=== PATIENT | male | born 1985 | race Caucasian/White ===

== ENCOUNTER → 2021-10-15 | Outpatient (CLI) | payer OTHER, SELFPAY | END | disposition home or self-care (01) | LOC: LABSPEC 11:41 | PROVIDERS: PCP Family Medicine; Referring Provider Physician Assistant; Visit Provider Physician Assistant | DX: U07.1 COVID-19 (principal) | CPT/HCPCS: 87635; U0005; U0003 ==

== ENCOUNTER 2023-11-01 07:33 | Emergency (ER) | payer OTHER, SELFPAY ==
[2023-11-01 07:34] VITALS: BP 191/108; PULSE 84; RESP 16; TEMP 35; O2SAT 97; BMI 40.6
--- NOTE | 2023-11-01 07:43 | EDS_ITS ---
HPI History of Present Illness Chief Complaint: Upper Extremity Injury Detail of Chief Complaint: Laceration left index finger Informant: patient Narrative Narrative: Patient presents to the emergency department with a laceration to his left index finger. Patient states that he was throwing a piece of wood into the fireplace when he hit the door of the fireplace with his left index finger. Patient states he was wearing thin leather gloves and is left filled with blood pretty quickly. He is unsure of his last tetanus shot. He is right-hand dominant. [facility] Medical History (Updated 11/01/23 @ 08:[address] Kwame Jackson, DO) Encounter to establish care Obesity (BMI 30-39.9) Pilonidal cyst Preventative health care Seasonal allergies Home Medications multivitamin 1 tab PO DAILY 10/22/22 [History Last Taken Unknown] cephalexin 500 mg capsule 500 mg PO Q6 #40 CAPSULES 11/01/23 [Rx Last Taken Unknown] omeprazole magnesium 20 mg tablet,delayed release (Prilosec OTC) 20 mg PO DAILY 11/01/23 [History Last Taken Unknown] Allergy/AdvReac Type Severity Reaction Status Date / Time No Known Allergies Allergy Unverified 11/19/22 17:58 Family History Other Anxiety Asthma Cancer Diabetes Hypertension Surgical History History of hernia repair History of tonsillectomy Social History Smoking Status: Never smoker alcohol intake: current alcohol intake frequency: a few times a month substance use type: does not use what type of physical activity do you participate in: none ROS ROS ED Review of Systems ROS Unobtainable: other Constitutional Constitutional ED: Reports lethargy; Denies chills, fever(s), sweats or weight loss Eyes Eyes: Denies blurry vision, change in vision or diplopia ENT ENT ED: Denies rhinorrhea or sore throat Cardiovascular Cardiovascular: Denies chest pain, orthopnea or racing heartbeat Respiratory/Chest Respiratory/Chest: Denies cough, dyspnea, dyspnea on exertion, orthopnea or sputum Gastrointestinal Gastrointestinal: Denies abdominal pain, diarrhea, nausea or vomiting Genitourinary Genitourinary ED: Denies dysuria, hematuria or urinary frequency Musculoskeletal Musculoskeletal: Reports other Details: Left index finger injury/laceration ; Denies arthralgias, back pain, myalgias or neck pain Integumentary Denies abscess, Abrasions or rash Neurologic Neurologic: Denies headache(s) or weakness Psychiatric Psychiatric: Denies anxiety, depression or suicidal thoughts Endocrine Endocrinology: Denies polydipsia, polyphagia or polyuria Hematologic/Lymphatic Hematologic/Lymphatic: Denies easy bleeding, easy bruising or lymphadenopathy Allergic/Immunologic Allergic/Immunologic ED: Denies mouth swelling, tongue swelling or urticaria EXAM Physical Exam Const Vital Signs: 11/01/23 07:34 Temperature 95.0 F L Temperature Source Temporal Pulse Rate 84 Respiratory Rate 16 Blood Pressure 191/108 H Blood Pressure Mean 135 Pulse Ox 97 Oxygen Delivery Method Room Air Positive well nourished and well developed General Appearance ED: well developed and NAD HEENT Reports TM's clear and moist mucous membranes normocephalic and atraumatic; Negative for trauma or tenderness Tympanic Membrane ED: Yes TM's clear Eyes PERRL and EOMs intact bilaterally General Eye ED: Negative for pale conjunctiva or scleral icterus Neck no lymphadenopathy, supple and no JVD General: Negative for tenderness Chest Wall inspection of chest normal and palpation of chest normal Chest: Negative for tenderness Resp normal respiratory effort and clear to auscultation bilaterally Effort and Inspection: Negative for respiratory distress or pain with movement Auscultation: Negative for rhonchi, wheezes or diminished lung sounds Cardio regular rate, regular rhythm, S1 normal heart sound, S2 normal heart sound and no murmurs Peripheral Pulses: pulses 2+ throughout GI normal to inspection, nondistended, normoactive bowel sounds, soft to palpation, non-tender, non-distended and no masses Back/Spine no CVA tenderness and no thoracic nor lumbar tenderness Extremity Extremity Narrative: Left index finger-patient does have ecchymosis and bruising to the volar aspect of the proximal phalanx. 1 cm laceration over the dorsum of the proximal phalanx with no active bleeding currently. He has good range of motion flexion extension of the digit against resistance. Neurovascular intact distally. General Extremety ED: Negative for edema General Extremity: Negative for edema Neuro oriented x3, CN's II-XII intact bilaterally, no sensory deficits noted and gait normal Sensorium / Orientation: awake, alert, oriented to person, oriented to place and oriented to time Motor Exam: strength 5/5 throughout and strength abnormal Psych mental status grossly normal Skin no rashes or lesions noted and no wounds MDM MDM MDM Narrative Medical decision making narrative: Patient presents with crush injury to the left index finger with laceration. X- rays of the left index finger obtained showed no fractures. Laceration repair please see procedure note. On exam of the wound I am able to visualize the extensor tendon but do not see any lacerations in it. He has normal range of motion through flexion extension and normal strength. Patient tolerated procedure well. He is advised have sutures removed in 10 days. I will cover him with Keflex. Advised return if increasing pain, redness, swelling, or condition worsening way. Radiography Diagnostic Testing: Three-view x-rays of the left index finger obtained interpreted by myself as no evidence of fracture or dislocation. Radiology in agreement. Procedures Lacerations Left index finger laceration: Length: 0.39 in Depth: Sub Q Shape: Linear Prep: Sterile Conditions and Shure-Clens Laceration repair: Irrigated, Lidocaine and Local Irrigated (ml): 50 Number of Sutures/Concepcion: 3 Suture Information: Ethilon, Simple and 5-0 Discharge Plan Triage Chief Complaint: Upper Extremity Injury ED Provider: Kwame Jackson Dx/Rx/DC Orders Clinical Impression: Contusion of finger, Laceration of left index finger Instructions: ED Laceration, Hand: All Closures, ED Finger or Toe Contusion Prescriptions: New cephalexin [cephalexin] 500 mg capsule 500 mg PO Q6 Qty: 40 0RF No Action multivitamin Tablet 1 tab PO DAILY omeprazole magnesium [Prilosec OTC] 20 mg tablet,delayed release (DR/EC) 20 mg PO DAILY Primary Care Provider: Arabella Odom Referrals: Arabella Oodm MD [Primary Care Provider] - 10 Day for suture removal Disposition Disposition: Home, Self Care Discharge Date/Time: 11/01/23 09:11
--- NOTE | 2023-11-01 07:55 | RAD_ITS ---
EXAM: XR LEFT FINGERS, 2 OR MORE VIEWS CLINICAL INDICATION: injury TECHNIQUE: Frontal, lateral and oblique views of the fingers of the left hand. COMPARISON: No relevant prior studies available. FINDINGS: BONES/JOINTS: No acute abnormality. SOFT TISSUES: Mild soft tissue swelling of the left second finger. No radiopaque foreign body. RAD/Finger(s) Min 2 Views IMPRESSION: No acute bone or joint abnormality. Electronically Signed: Andrea Lees MD at 8:34 EST ,
--- OUTSIDE RECORDS SUMMARY | 2023-11-01 08:07 | XMS RPT_ITS | CCD ---
Author Name Unknown Address [address] [place] [address] Organization [facility] Results Test Name Value Interpretation Reference Range Facil ity Summary Purpose Family History No Family History Records FoundNo Family History Records Found Advance Directives No Advanced Directives Records FoundNo Advanced Directives Records Found Additional Source Comments (unrecognized sect ion and content) No Status Records FoundNo Status Records Found INFORMATION SOURCE (unrecogn ized section and content) DATE CREATED AUTHOR AUTHOR'S PEG ATION 11/30/2020 [facility] FOR RECORDS PERTAINING TO PATIENTS WHO ARE OR HAVE BEEN ENROLLED IN A CHEMICAL DEPENDENCY/SUBSTANCEABUSE PROGRAM, SOME INFORMATION MAY BE OMITTED. This clinical summary was aggregated from multiple sources. Caution should be exercised in using it in the provision of clinical care. This summary normalizes information from multiple sources, and as a consequence, information in this document may materially change the coding, format and clinical context of patient data. In addition, data may be omitted in some cases. CLINICAL DECISIONS SHOULD BE BASED ON THE PRIMARY CLINICAL RECORDS. [facility] [employer] [facility]. provides no warranty or guarantee of the accuracy or completeness of information in this document.
[2023-11-01] MEDS: Lidocaine 1% (20 ml mdv) 20 ML Vial 4 ML INFILT (08:50)
[2023-11-01] MEDS: Diphth,Pertuss(Acell),Tet Vac 0.5 ML Vial IM (08:50)
[2023-11-01] MEDS: Cephalexin 250 MG Capsule 500 MG PO (08:58)
== END 2023-11-01 09:11 | disposition home or self-care (01) ==
PROVIDERS: Emergency Provider Emergency Medicine; PCP Internal Medicine; Visit Provider Emergency Medicine
DX: S61.211A Laceration without foreign body of left index finger without damage to nail, initial encounter (principal); W22.09XA Striking against other stationary object, initial encounter; Z23 Encounter for immunization; Z79.899 Other long term (current) drug therapy
CPT/HCPCS: 12001; 73140; 90471; 90715; 99283

== ENCOUNTER → 2023-12-08 | Outpatient (CLI) | payer OTHER, SELFPAY ==
[2023-12-08 11:57] LABS: Absolute Lymphocyte Count 2.04 X10^3/uL (0.83-4.51); Absolute Neutrophil Count 5.5 X10^3/uL (2.0-7.7); Basophil# 0.09 X10^3/uL; Eosinophil# 0.09 X10^3/uL; Hematocrit 46.9 % (40-54); Hemoglobin 16.3 g/dL (13.0-16.5); Lymphocyte # 2.04 X10^3/ul (0.83-4.51); Lymphocyte % 23.2 % (19-41); Mean Corp Hgb Conc 34.8 g/dL (32-36); Mean Corpuscular Hgb 31.7 pg (27.0-32.0); Mean Corpuscular Volume 91.2 fL (80-94); Mean Platelet Vol. 10.3 fl (6.2-12.0); Monocyte% 11.4 % (0-10); NRBC Flagged by Analyzer 0 % (0-5); Neutrophil # 5.52 X10^3/uL (2.7-7.7); Neutrophil % 62.8 % (47-70); Platelet Count 292 K/mm3 (150-450); RBC Distribution Width CV 11.5 % (11.6-14.6); RBC Distribution Width SD 38.5 fl (35.1-43.9); Red Blood Count 5.14 M/mm3 (4.6-6.2); White Blood Count 8.8 K/mm3 (4.4-11.0)
[2023-12-08 12:30] LABS: Hemoglobin A1c 5.5 % (3.8-5.6)
[2023-12-08 12:43] LABS: ALB/GLOB Ratio 1.1 RATIO (0.9-2.4); AST(SGOT) 24 U/L (15-37); Alanine Aminotransfer ALT/SGPT 51 U/L (16-61); Albumin, Serum 4.3 g/dL (3.2-5.0); Alkaline Phosphatase 54 U/L (45-117); Anion Gap 7 (5-15); BUN 12 mg/dL (7-18); Calcium,Total 9.5 mg/dL (8.5-10.1); Chloride 102 mmol/L (98-107); Cholesterol 240 mg/dL (200); Creatinine, Serum 0.93 mg/dL (0.70-1.30); EST Glomerular Filtration Rate 96 mL/min (>60); Est Glom Filt Rate - Afr Amer 116 mL/min (>60); Globulin 3.8 g/dL (2.2-4.2); Glucose 99 mg/dL (74-106); High Density Lipoprotein 59 mg/dL; Potassium 4.3 mmol/L (3.5-5.1); Protein, Total 8.1 g/dL (6.4-8.2); Sodium Level 133 mmol/L (136-145); Triglycerides 185 mg/dL; Very Low Density Lipoprotein 37 mg/dL (5-40)
== END | disposition home or self-care (01) ==
LOC: LAB 11:27
PROVIDERS: PCP Internal Medicine; Referring Provider Internal Medicine; Visit Provider Internal Medicine
DX: Z00.00 Encounter for general adult medical examination without abnormal findings (principal); E66.9 Obesity, unspecified
CPT/HCPCS: 36415; 80053; 80061; 83036; 85025

== ENCOUNTER 2023-12-12 15:13 | Emergency (ER) | payer OTHER, SELFPAY ==
[2023-12-12 15:14] VITALS: BP 146/84; PULSE 88; RESP 14; TEMP 36.8; O2SAT 97
--- NOTE | 2023-12-12 15:23 | EDS_ITS ---
HPI History of Present Illness Chief Complaint: Lower Extremity Injury Narrative Narrative: 37-year-old male who denies significant past medical history presents with injury to his right knee that he sustained about an hour ago. He was loading hay into the bed of a truck because he has animals to feed, when he slipped, and twisted his right knee. He fell onto his right elbow as well but denies any injury. No hitting of his head or loss of consciousness. He states that he thinks he dislocated his right knee because he was unable to get up. Additionally, and had twisted in all different directions when he had fallen. He was able to hobble around . But now has pain in the fibular head area. He states he is able to bend and flex his knee as well. He denies other injury but is having pain in his right knee. [facility] Medical History Encounter to establish care Left knee pain Obesity (BMI 30-39.9) Pilonidal cyst Preventative health care Seasonal allergies Home Medications multivitamin 1 tab PO DAILY 10/22/22 [History Last Taken Unknown] omeprazole magnesium 20 mg tablet,delayed release (Prilosec OTC) 20 mg PO DAILY 11/01/23 [History Last Taken Unknown] Allergy/AdvReac Type Severity Reaction Status Date / Time shellfish derived Allergy Mild Anaphylaxis Verified 12/12/23 15:16 Family History Other Anxiety Asthma Cancer Diabetes Hypertension Surgical History History of hernia repair History of tonsillectomy Social History adopted: No household members: spouse and children number of children: 2 current occupational status: employed current occupation: [employer] pets and animals: Yes (2) pets and animals: cat(s) Smoking Status: Never smoker alcohol intake: current alcohol intake frequency: a few times a month substance use type: does not use caffeine: Yes (4) Type: coffee what type of physical activity do you participate in: none frequency: does not exercise seatbelt use: always do you feel safe at home: Yes ROS ROS ED ROS Narrative Constitutional: No fever, no chills. HEENT: No sore throat. No neck pain. No loss of vision. No rhinorrhea. Cardiovascular: No chest pain. No palpitations. No pedal edema. Respiratory: No cough, no shortness of breath. Abdominal: No abdominal pain. No nausea. No vomiting. Genitourinary: No dysuria. No hematuria. Musculoskeletal: No myalgias. Right knee pain worse with movement, fibular head tenderness. Neurologic: No headaches. No dizziness. No lightheadedness. Skin: No rash. No change in color. Psychiatric: No depression. No anxiety. EXAM Physical Exam Narrative Exam Narrative: Afebrile. Vital signs noted. HEENT: Normocephalic. Atraumatic. PERRL, EOMI. Neck soft and supple. No point tenderness or step off. Cardiovascular: Regular rate and rhythm. No murmurs, rubs, or gallops appreciated. Respiratory: No tachypnea. Lungs clear to auscultation bilaterally. Gastrointestinal: Abdomen soft, nontender, with normoactive bowel sounds. No rebound or guarding. Neurological: Awake. Alert. Nonfocal, nonlateralizing. Skin: No rash. Normal color. No pallor. Musculoskeletal: No pedal edema. Full range of motion extremities. Mild tenderness to palpation right fibular head area. No patellar dislocation. Able to lift right leg off bed without difficulty. Flexion and extension at right knee is intact. No crepitance. Full range of motion right elbow including pronation and supination. No noted swelling. Const Vital Signs: 12/12/23 15:14 Temperature 98.2 F Temperature Source Temporal Pulse Rate 88 Respiratory Rate 14 Blood Pressure 146/84 H Blood Pressure Mean 104 Pulse Ox 97 Oxygen Delivery Method Room Air MDM MDM MDM Narrative Medical decision making narrative: I do not feel that x-rays of the right elbow are indicated, and furthermore patient declines. I do feel however that right knee x-rays are indicated. Concern is for ligament sprain versus internal derangement versus fracture versus muscle strain. He was given an ice pack and 1 [place] tablet here for analgesia and x-rays were obtained of the right knee in 4 views. On my independent interpretation of his knee x-rays I see no evidence of acute fracture. I reviewed the radiology report which confirms my independent interpretation. At this point in time, I feel he probably has more of a knee sprain given his clinical examination and x-rays that show no evidence of fracture. He will be wrapped in an Sushant wrap and given crutches and continue ice and elevation at home and try to be nonweightbearing until cleared by orthopedics or his primary care provider. He has elected to take [id number]-ojqoaei medications for analgesia. I do not feel he requires admission at this time. Disposition is discharged home in stable condition. History & Record Review Discussion w/independent historian: Patient Additional record(s) reviewed:: Prior ED visit Radiography Diagnostic Testing: Clinical Impression(s) from Imaging Studies Knee X-Ray 12/12/23 15:25 IMPRESSION: Negative right knee x-rays. Electronically Signed: Emir Echeverria MD at 16:07 EST Reading Location ID and State: [facility] / ID , Service support , Discharge Plan Triage Chief Complaint: Lower Extremity Injury ED Provider: Db Acuna Dx/Rx/DC Orders Clinical Impression: Right knee sprain, Fall Instructions: ED Mechanical Fall, ED Knee Sprain, ED Knee Sprain Ligaments Prescriptions: No Action multivitamin Tablet 1 tab PO DAILY omeprazole magnesium [Prilosec OTC] 20 mg tablet,delayed release (DR/EC) 20 mg PO DAILY Primary Care Provider: Arabella Odom Referrals: Rubin Kidd MD [Med Staff - Active Staff] - 1 Week if not improving Arabella Odom MD [Primary Care Provider] - 1 Week Activity Restrictions/Additional Instructions: Nonweightbearing on right knee until cleared by your doctor or orthopedics. Continue ice and elevation at home. Kqdo-[id number]-[id number] medications like ibuprofen or Tylenol as needed for pain. Disposition Disposition: Home, Self Care Discharge Date/Time: 12/12/23 16:30
--- NOTE | 2023-12-12 15:25 | RAD_ITS ---
EXAM: XR RIGHT KNEE COMPLETE, 4 OR MORE VIEWS CLINICAL INDICATION: Trauma TECHNIQUE: Four or more views of the right knee. COMPARISON: No relevant prior studies available. FINDINGS: BONES/JOINTS: Unremarkable. No acute fracture. No subluxation. Normal alignment. Preservation of the joint space. No sclerotic or destructive changes observed. SOFT TISSUES: Unremarkable. No soft tissue swelling or gas. No radiopaque foreign body. RAD/Knee 4 or More Views IMPRESSION: Negative right knee x-rays. Electronically Signed: Emir Echeverria MD at 16:07 EST ,
[2023-12-12] MEDS: HYDROcodone Bitartrate/Apap 5/325 Tablet PO (15:36)
--- OUTSIDE RECORDS SUMMARY | 2023-12-12 15:40 | XMS RPT_ITS | CCD ---
Author Name Unknown Address [address] [place] [address] Organization [facility] Results Test Name Value Interpretation [...] DATE CREATED AUTHOR AUTHOR'S PEG ATION 11/30/2020 [facility] FOR RECORDS PERTAINING TO PATIENTS WHO ARE [...] BE BASED ON THE PRIMARY CLINICAL RECORDS. [facility] [employer] [facility]. provides no warranty or guarantee of the accuracy or completeness of information in this document.
== END 2023-12-12 16:30 | disposition home or self-care (01) ==
PROVIDERS: Emergency Provider Emergency Medicine; PCP Internal Medicine; Visit Provider Emergency Medicine
DX: S83.91XA Sprain of unspecified site of right knee, initial encounter (principal); W01.0XXA Fall on same level from slipping, tripping and stumbling without subsequent striking against object, initial encounter; Y93.K9 Activity, other involving animal care
CPT/HCPCS: 73564; 99283

== ENCOUNTER 2024-05-23 16:30 | Outpatient (RCR) | payer OTHER, SELFPAY ==
--- NOTE | 2024-01-25 08:48 | HP.PTEVAL ---
Patient's Visit Information Visit Information Visit Information: SHAHID COHEN is a 38 year old M referred to Physical Therapy by Dr. Elvin Monique MD with a diagnosis of R knee pain. Date of Evaluation: 01/24/24 Physical Therapist: Saurav Badillo DPT Visit Plan Frequency: 1x/Week Duration: 4 Weeks Plan: -hip, quad, and HS strengthening (consider OKC vs CKC depending on pt reported pain, end range flex can increase pain) -static and dynamic balance (simulate walking on grass/uneven ground) -modalities as needed to help with pain or swelling Pt overall having pain, but mostly with end range flexion and descending stairs, could be potential meniscus involvement, work on strength within relatively pain-free manner (HEP: TKE GTB, 3 way hip with GTB, S/L ITB stretch) Subjective Subjective: Pt presents to PT with R knee pain, which started in Nov. when pt stepped down out of truck and knee buckled inward. Pt reports swelling immediately and then 4-5 days after, got better. Pt went to ER, x-rays showed no fx and pt followed up with ortho and they did MRI last . Pain has overall decreased in intensity, but is still bothering him. Pt notes greatest pain when sitting for a while and then feels stiff when getting up out of a chair, getting up out of bed in the morning takes some time to work out the pain. Getting in and out of car when twisting knee caused pain for 15-20 minutes last week. Pt has some unstable feelings in R knee, ascending stairs when lifting/bending causes pain, worse when descending and lowering. Pt does not notice any swelling, even with increase in WB activity. Squatting down and standing back up are both painful, deep pain behind knee cap. 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 Kneeling hurts. Pt was told not to go hiking or use weed-eater on uneven terrain. 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 Pain Right Knee: Pain Intensity (Out of 10): 0 Pain Intensity Range: 0 and 8 Objective Objective: ROM: 130 flex lloyd , full ext, some pain with end range flex and ext in R knee MMT: L - knee ext 4+/5, knee flex 4-/5, hip flex 4/5, hip ext 4-/5, hip ABD 4-/5 R - knee ext 4+/5, knee flex 4-/5, hip flex 4-/5 pulling in ant hip, hip ext 4-/5, hip ABD 4-/5 JOINT PLAY: WNL PALPATION: ITB tenderness lloyd, tighter on R side, painful along R medial joint line GAIT: slightly increase in ELIAS, increased lateral trunk sway, fairly equal stance phase STAIRS: reciprocal pattern painful during descending, repetitive step ups painful, used UE to help support knee PIVOT SHIFT: (-) slight discomfort medial R knee ANT DRAWER: (-) APLEYS DISTRACTION: (+) for meniscus VARUS/VALGUS: (-) SLS: <10s on R and felt less stable, 12s on L Pt displays mild weakness of R LE and is affected by pain during end flex of knee (step ups, descending stairs, squatting), could be potential medial meniscus involvement d/t current sxs and PAT, waiting on MRI results. Balance/Special Test Scores Lower Extremity Functional Score: 52 Goals Goal 1:: Pt will be able to perform a squat to 90 deg with <2/10 pain Goal Time Frame: 4-6 Weeks Goal 2:: Pt will demonstrate symmetrical LE strength Goal Time Frame: 4-6 Weeks Goal 3:: Pt will be able to navigate flight of steps with <2/10 pain Goal Time Frame: 4-6 Weeks Goal 4:: Pt will be able to perform all yardwork related tasks with <2/10 pain Goal Time Frame: 6-8 Weeks Rehabilitation Potential Physical Therapy Diagnosis: Pt presents with mild R LE weakness, pain with end range knee ROM, and difficulty with stairs d/t pain. Pt would benefit from hip and knee strengthening to improve stability and pain in R knee. Rehabilitation Potential: Good Anticipated Interventions Patient/Client Instruction: Educate patient on: Condition and Plan of Care For the Purpose of:: To decrease pain, To increase ROM, To improve muscle performance and motor function, To improve ability to perform ADL's, To increase tolerance to activity/condition/position, To improve performance and independence with ADL's, To improve ability of physical actions for home/community/work/leisure, To improve gait and locomotor functions, To improve health of tissue, To improve balance, To assume or resume ADL's, To improve health and function, To foster healthy habits, To improve self management, To prevent re-injury, To improve ability to perform tasks related to life management and To improve tolerance to ADL's Therapeutic Exercise to Include: Strength training, Balance training, Flexibilty training, Gait and locomotor training, Neuromotor development, Passive ROM and Active ROM For the Purpose of:: To decrease pain, To improve muscle performance and motor function, To improve ability to perform ADL's, To increase tolerance to activity/condition/position, To improve ability of physical actions for home/community/work/leisure, To improve gait and locomotor functions, To improve health of tissue, To improve balance, To assume or resume ADL's, To improve self management, To prevent re-injury, To improve ability to perform tasks related to life management and To improve tolerance to ADL's Manual Therapy Techniques to Include: Mobilization, Passive ROM and Soft tissue mobilization For the Purpose of:: To decrease pain, To increase ROM and To improve health of tissue Functional electric stimulation: Yes TENS: Yes Cryotherapy (ice pack, ice massage): Yes Ultrasound (thermal/non thermal): Yes Vasopneumatic device: Yes For the Purpose of:: To decrease pain and To decrease swelling/inflammation Text: Thank you for the opportunity to evaluate your patient. For Medicare and Medicare HMO plans, please review the plan of care and approve it. It will need to be FAXED BACK to us at [phone] for Medicare purposes. For Medicare only, by signing this I certify the plan of care. Please let me know if there are questions or concerns regarding this plan of care. Physician Signature: Date:
--- NOTE | 2024-03-03 18:01 | HP.PTREVAL ---
Re-Evaluation Intro: PATRICK CHAUDHARY ,LYNETTE It has been my pleasure to treat SHAHID COHEN over the last 2 visits for SPRAIN OF ANTERIOR CRUCIATE LIGAMENT RIGHT KNEE,TEAR LATERAL MENISCUS RIGHT. Please see the progress note below for an update on the physical therapy plan of care! Subjective Subjective: Patient fell out of truck caused knee .Patient had PT Eval before MRI . Patient had January MRI showed tear ACL . Thus s/p ACL repair on 03/03 with allograft done by Dr Malik . D/C to home with WBAT with TROM brace locked in extension. Patient had nerve block Pain located global knee 3-4 pain . Patient sleeping oaky. Patient taking pain medication oxycodone . Denies paresthesia/tingling . RTD on 03/17/24 Objective Objective/Function: POSTURE: WFL GAIT:ambulate with crutches with knee brace IROM locked in extension with NWB RE( OKAY WITH WBAT) NEURO: denies paresthesia/tingling QUADS SET: fair GIRTH PATELLA : 51.3 CM GIRTH SUPRA PATELLA 6 : 60.1 CM AROM: 8-70 supine knee flexion MMT: ( peak force) 0 Plan Plan Plan: S/P ACL REPAIR WITH ALLOGRAFT MARCH [address] MALIK WBAT RLE WITH CRUTCHES WITH KNEE BRACE LOCKED PT INTERVENTIONS INTERVENTIONS START ROM ,MAT EX'S 4 WAY SLR, PATELLA,GAIT TRAINING , MOBS,PROGRESS TO STRENGTHENING EX'S QUADS/HAMS/HIP OPEN/CLOSED CHAIN APPROPRIATE ,PROPRIOCEPTION , FUNCTION STRENGTHENING AND CP/VASO NEEDED Balance/Gait/Functional tests Balance/Special Test Scores Lower Extremity Functional Score: 19 Goals Goals Goal 1:: Pt to be I with HEP for ACL Goal Time Frame: 8-12 Weeks Goal 2:: Patient to normalize gait pattern Goal Time Frame: 4-6 Weeks Goal 3:: Patient to improve AROM 0-125 degrees supine flexion for stairs and ADL Goal Time Frame: 4-6 Weeks Goal 4:: Patient to improve peak force quads/hams /hip by 20-30# strengthening to improve function with job demands Goal Time Frame: 8-12 Weeks Goal 5:: Patient to demonstrate 70% improvement with improve function and ADL and job demands Goal Time Frame: 8-12 Weeks Goal 6:: Patient to improve LFES score by 20 points to improve QOL Goal Time Frame: 8-12 Weeks Anticipated Interventions Anticipated Interventions Patient/Client Instruction: Educate patient on: Condition and Plan of Care For the Purpose of:: To decrease pain, To increase ROM, To improve muscle performance and motor function, To improve ability to perform ADL's, To increase tolerance to activity/condition/position, To improve performance and independence with ADL's, To improve ability of physical actions for home/community/work/leisure, To improve gait and locomotor functions, To improve health of tissue, To improve balance, To assume or resume ADL's, To improve health and function, To foster healthy habits, To improve self management, To prevent re-injury, To improve ability to perform tasks related to life management and To improve tolerance to ADL's Therapeutic Exercise to Include: Strength training, Balance training, Flexibilty training, Gait and locomotor training, Neuromotor development, Passive ROM and Active ROM Comment: ACL REPAIR WITH ALLOGRAFT For the Purpose of:: To decrease pain, To improve muscle performance and motor function, To improve ability to perform ADL's, To increase tolerance to activity/condition/position, To improve ability of physical actions for home/community/work/leisure, To improve gait and locomotor functions, To improve health of tissue, To improve balance, To assume or resume ADL's, To improve self management, To prevent re-injury, To improve ability to perform tasks related to life management and To improve tolerance to ADL's Manual Therapy Techniques to Include: Mobilization, Passive ROM and Soft tissue mobilization For the Purpose of:: To decrease pain, To increase ROM and To improve health of tissue Functional electric stimulation: Yes TENS: Yes Cryotherapy (ice pack, ice massage): Yes Ultrasound (thermal/non thermal): Yes Vasopneumatic device: Yes For the Purpose of:: To decrease pain and To decrease swelling/inflammation Re-Evaluation Ending Re-evaluation ending: Please do not hesitate to contact me at [phone] by phone or if you have questions or concerns regarding this new plan of care! Sincerely, Saman Fry, PT, Cert MDT, OCS
--- NOTE | 2024-05-24 15:34 | HP.PTDCSUM ---
Discharge Summary D/C summary: It has been my pleasure to treat QUINN COHEN referred by Dr. Elvin Monique MD, with the diagnosis of SPRAIN OF ANTERIOR CRUCIATE LIGAMENT RIGHT KNEE,TEAR LATERAL MENISCUS RIGHT for a total of 16 visit(s). Discharge Date: 05/23/24 Please see the following information for a summary of their discharge status. Subjective Subjective: Pt. reports overall doing much better. He has been doing a lot, and will be a little sore that day, but nothing lasting. No pain coming in today. Pain Right Knee: Pain Intensity (Out of 10): 0 Overall Improvement % Improvement: 90 Objective Objective/Function: ROM: 0-0-127deg. good HS length. Pt. has good equal strength between BLEs. RLE: knee Ex 51.1#, flexion 31.4#; hip: flexion 31.1#. LLE: knee ext 49.1#, flexion 29.8#; hip: flexion 33.3#. good squat mechanics as well. Overall Quinn is doing well, but I did talk to him about not over doing it. he tends to Pt. is ambulating well, no issues with stair negotiation. Overall Quinn is doing well. Goals Goal 1:: Pt to be I with HEP for ACL Goal Progress: Goal Met Goal 2:: Patient to normalize gait pattern Goal Progress: Goal Met Goal 3:: Patient to improve AROM 0-125 degrees supine flexion for stairs and ADL Goal Progress: Goal Met Goal 4:: Patient to improve peak force quads/hams /hip by 20-30# strengthening to improve function with job demands Goal Progress: Goal Met Goal 5:: Patient to demonstrate 70% improvement with improve function and ADL and job demands Goal Progress: Goal Met Goal 6:: Patient to improve LFES score by 20 points to improve QOL Goal Progress: Goal Met Plan Plan: Pt. to be DC from PT at this point in time. He is to continue with his strenghtening exercises on his own at this point in time. D/C Information d/c sentence: If there are questions or concerns regarding this patient's physical therapy, please feel free to call me at [phone]. Thank you for the referral of this patient. Sincerely, Saurav Wadsworth Sipos, DPT Balance/Gait/Functional tests Balance/Special Test Scores Lower Extremity Functional Score: 68 Improvement % Improvement: 90
== END 2024-05-23 19:00 | disposition home or self-care (01) ==
LOC: PT 16:30
PROVIDERS: PCP Internal Medicine; Referring Provider Specialist; Visit Provider Specialist
DX: M25.561 Pain in right knee (principal); S83.8X1D Sprain of other specified parts of right knee, subsequent encounter
CPT/HCPCS: 97016; 97110; 97161; 97530

== ENCOUNTER 2025-01-01 20:00 | Outpatient (CLI) | payer OTHER, SELFPAY | END 2025-01-01 23:59 | disposition home or self-care (01) | LOC: SL 20:32 | PROVIDERS: PCP Internal Medicine; Referring Provider Internal Medicine; Visit Provider Internal Medicine | DX: G47.10 Hypersomnia, unspecified (principal) | CPT/HCPCS: 95810 ==

== ENCOUNTER → 2025-01-16 | Outpatient (CLI) | payer OTHER, SELFPAY | END | disposition home or self-care (01) | LOC: SL 15:43 | PROVIDERS: PCP Internal Medicine; Referring Provider Internal Medicine; Visit Provider Internal Medicine | DX: Z46.89 Encounter for fitting and adjustment of other specified devices (principal) ==

== ENCOUNTER → 2025-02-26 | Outpatient (CLI) | payer OTHER, SELFPAY ==
[2025-02-26 16:38] LABS: Absolute Lymphocyte Count 2.69 X10^3/uL (0.83-4.51); Absolute Neutrophil Count 4.2 X10^3/uL (2.0-7.7); Basophil# 0.06 X10^3/uL; Basophil% 0.7 % (0-1); Eosinophil# 0.23 X10^3/uL; Eosinophils% 2.8 % (0-5); Hematocrit 45.7 % (40-54); Hemoglobin 15.7 g/dL (13.0-16.5); Lymphocyte # 2.69 X10^3/ul (0.83-4.51); Lymphocyte % 32.7 % (19-41); Mean Corp Hgb Conc 34.4 g/dL (32-36); Mean Corpuscular Hgb 31.1 pg (27.0-32.0); Mean Corpuscular Volume 90.5 fL (80-94); Mean Platelet Vol. 10.9 fl (6.2-12.0); Monocyte# 0.97 X10^3/uL; Monocyte% 11.8 % (0-10); NRBC Flagged by Analyzer 0 % (0-5); Neutrophil # 4.23 X10^3/uL (2.7-7.7); Neutrophil % 51.5 % (47-70); Platelet Count 277 K/mm3 (150-450); RBC Distribution Width CV 11.9 % (11.6-14.6); Red Blood Count 5.05 M/mm3 (4.6-6.2); White Blood Count 8.2 K/mm3 (4.4-11.0)
[2025-02-26 17:20] LABS: ALB/GLOB Ratio 1.4 RATIO (0.9-2.4); AST(SGOT) 24 U/L (<=37); Alanine Aminotransfer ALT/SGPT 25 U/L (<=46); Albumin, Serum 4.5 g/dL (3.5-5.0); Alkaline Phosphatase 66 U/L (40-129); Anion Gap 12 (5-15); BUN 14 mg/dL (4-19); BUN/Creat Ratio 18.1 RATIO (10-20); Calcium,Total 9.6 mg/dL (7.6-11.0); Carbon Dioxide 25.6 mmol/L (21.0-32.0); Chloride 101 mmol/L (98-108); Cholesterol 197 mg/dL (<=200); Creatinine, Serum 0.76 mg/dL (0.70-1.20); EST Glomerular Filtration Rate 116 (>60); Globulin 3.2 g/dL (2.2-4.2); Glucose 92 mg/dL (70-99); High Density Lipoprotein 50 mg/dL; Low Density Lipoprotein Calc. 123 mg/dL; Potassium 4.4 mmol/L (3.3-5.1); Protein, Total 7.6 g/dL (5.9-8.4); Sodium Level 139 mmol/L (133-145); Total Bilirubin 0.71 mg/dL (0.00-1.30); Triglycerides 123 mg/dL; Very Low Density Lipoprotein 25 mg/dL (5-40); cholesterol:hdl ratio screen 3.97
== END | disposition home or self-care (01) ==
LOC: BIMLAB 15:48
PROVIDERS: PCP Internal Medicine; Referring Provider Internal Medicine; Visit Provider Internal Medicine
DX: I10 Essential (primary) hypertension (principal); R79.89 Other specified abnormal findings of blood chemistry
CPT/HCPCS: 36415; 80053; 80061; 84402; 84403; 85025